=== PATIENT | female | born 1935 | race Caucasian/White ===

== ENCOUNTER 2022-04-11 11:09 | Emergency (ER) | payer MEDICARE, OTHER | END 2022-04-11 19:22 | disposition home or self-care (01) | LOC: MW.ED 11:09 | DX: U07.1 COVID-19 (principal); Z88.0 Allergy status to penicillin; Z79.01 Long term (current) use of anticoagulants; Z79.899 Other long term (current) drug therapy; Z90.49 Acquired absence of other specified parts of digestive tract | CPT/HCPCS: 99283 ==

== ENCOUNTER 2022-09-03 09:35 | Emergency (ER) | payer MEDICARE, OTHER ==
[2022-09-03] MEDS ORDERED: Sodium Chloride 0.9% 500 ML IV SCH (10:00)
[2022-09-03 10:31] LABS: CORONAVIRUS COVID-19 NAA NEGATIVE (NEGATIVE); INFLUENZA A NAA NEGATIVE (NEGATIVE); INFLUENZA B NAA NEGATIVE (NEGATIVE)
[2022-09-03 10:45] LABS: BLOOD UREA NITROGEN,BUN 13 mg/dL (7.0-18.0); CHLORIDE,CL 96 mmol/L (98-107); ESTIMATED GFR 63 mL/min (>60); GLUCOSE RANDOM 131 mg/dL (74-106); LIPASE 64 U/L (73-393); POTASSIUM,K 3.7 mmol/L (3.5-5.1); SODIUM,NA 135 mmol/L (136-145)
== END 2022-09-03 14:21 | disposition home or self-care (01) ==
LOC: MW.ED 09:35
DX: F10.139 Alcohol abuse with withdrawal, unspecified (principal); Z79.01 Long term (current) use of anticoagulants; Z88.0 Allergy status to penicillin; Z20.822 Contact with and (suspected) exposure to COVID-19
CPT/HCPCS: 0240U; 36415; 80053; 80305; 80307; 81001; 83690; 83880; 85025; 85610; 93005; 96361; 96374; 99285; J3360; J7040; 93010; 99283